=== PATIENT | female | born 1970 | race Caucasian/White ===

== ENCOUNTER 2016-11-09 08:39 | Emergency (ER) | payer BC, OTHER ==
[~2016-11-09] VITALS: Wt 65.9 kg
[~2016-11-09 08:39] MED LIST: NITR-58 PO
[2016-11-09] MEDS ORDERED: SOD CHLORIDE 0.9% 1,000 ML IV STA (09:01)
[2016-11-09 09:35] LABS: ADD UMIC YES; URINE BILIRUBIN (Dip) NEGATIVE (NEGATIVE); URINE BLOOD (Dip) 3+ (NEGATIVE); URINE COLOR LT. YELLOW (YELLOW); URINE GLUCOSE (Dip) NEGATIVE (NEGATIVE); URINE KETONES (Dip) NEGATIVE (NEGATIVE); URINE LEUKOCYTE ESTERASE (Dip) TRACE (NEGATIVE); URINE NITRITE (Dip) NEGATIVE (NEGATIVE); URINE TOTAL PROTEIN (Dip) TRACE (NEGATIVE); URINE UROBILINOGEN (Dip) 0.2 E.U./dL (0.1-1.0)
[2016-11-09 09:35] LABS: BASOPHILS % 0.5 % (0.0-2.0); EOSINOPHILS % 0.8 % (0.0-7.0); HEMATOCRIT 38.2 % (37.0-47.0); HEMOGLOBIN 12.9 g/dl (12.0-16.0); LYMPHOCYTES # 1.7 10^3/ul (0.8-2.9); LYMPHOCYTES % 35.7 % (15.0-51.0); MEAN CORPUSCULAR HEMOGLOBIN 27.3 pg (29.0-33.0); MEAN CORPUSCULAR HGB CONC 33.7 g/dl (32.0-37.0); MEAN CORPUSCULAR VOLUME 81.1 fl (82.0-101.0); MEAN PLATELET VOLUME 8.3 fl (7.4-10.4); MONOCYTE # 0.3 10^3/ul (0.3-0.9); MONOCYTES % 7.2 % (0.0-11.0); NEUTROPHIL # 2.6 10^3/ul (1.6-7.5); NEUTROPHILS % 55.8 % (39.0-77.0); PLATELET COUNT 288 10^3/UL (140-440); RED BLOOD COUNT 4.71 10^6/ul (4.20-5.40); RED CELL DISTRIBUTION WIDTH 14.1 % (11.5-14.5); UNCORRECTED WBC 4.7 10^3/ul (4.8-10.8); WHITE BLOOD COUNT 4.7 10^3/ul (4.8-10.8)
[2016-11-09 09:38] LABS: CONDITION 1; LH ANALYZER COMMENTS 1
[2016-11-09 09:40] LABS: POTASSIUM 3.7 mmol/L (3.5-5.1)
[2016-11-09 09:43] LABS: CREATININE 0.67 mg/dl (0.44-1.00)
[2016-11-09 10:02] LABS: BACTERIA,URINE OCCASIONAL; URINE RBCS >200 /HPF (0)
[2016-11-09] MEDS ORDERED: CEPHALEXIN 500 MG CAP PO ONE (10:30)
--- NOTE | 2016-11-09 10:43 | RADRPT ---
PROCEDURE: US Pelvis. CLINICAL INDICATION: Pelvic pain. LMP 10/11/2016. TECHNIQUE: Multiple transabdominal and transvaginal sonographic images of the pelvis were obtained . COMPARISON: None. FINDINGS: The uterus is anteverted in position and measures 9.4 x 5.1 x 6.0 cm (151 cc). Nonspecific heterogen eity of the uterine myometrium is observed. The endometrial complex is homogeneous in echogenicity a nd measures 5 mm in thickness. The cervix is normal. There is no free pelvic fluid. The right ovary measures 3.7 x 1.8 x 2.1 cm (7.4 cc). Small follicles are present with a dominant 2. 6 cm follicle. The left ovary is not seen. IMPRESSION: Nonspecific heterogeneity of the uterine myometrium. Otherwise, unremarkable pelvic ultrasound. RPTAT: [facility]ST .Lyn Kelly MD, MD Date Time Electronically viewed and signed by .Lyn Kelly MD, MD on 11/09/2016 10:43 .T/
[2016-11-09 11:10] VITALS: BP 125/61; PULSE 75; RESP 20; TEMP 98.2
[2016-11-09 11:26] LABS: INR 1.06; PROTIME 13.8 Sec (12.2-14.2); PT RATIO 1.1
--- NOTE | 2016-11-09 11:26 | ERD ---
ER Documentation Chief Complaint Date/Time DATE: 11/09/16 TIME: 11:22 Chief Complaint vag bleed since 10/11/16, using "5-6 pads every 2 hrs" HPI 46-year-old man brought in by for complaints of continued vaginal bleeding daily 1 month, patient uses about 6-7 pads daily. She has had irregular menses prior to this. She has had some weakness no loss of consciousness, no fevers or chills, no vaginal discharge other than bleeding, no headache or blurry vision. Patient denies dysuria. ROS All systems reviewed and are negative except as per history of present illness. Medications Home Meds Active Scripts Cephalexin* (Keflex*) 500 Mg Capsule, 500 MG PO TID for 5 Days, CAP Prov:TY FLORES MD 11/09/16 Discontinued Reported Medications [None] No Conflict Check 10/07/13 [None] No Conflict Check 11/21/09 Discontinued Scripts Nitrofurantoin Monohyd Macrocr* (Macrobid*) 100 Mg Capsr, 100 MG PO BID, #14 CAP 0 Refills Prov:DAVIS SLOAN PA-C 10/07/15 Allergies Allergies: Coded Allergies: No Known Allergies (Verified Allergy, Mild, 11/09/16) PMhx/Soc None History of Surgery: No Anesthesia Reaction: No Hx Neurological Disorder: No Hx Respiratory Disorders: No Hx Cardiac Disorders: No Hx Psychiatric Problems: No Hx Miscellaneous Medical Probl: No Hx Alcohol Use: No Hx Substance Use: No Hx Tobacco Use: No Smoking Status: Never smoker FmHx Family History: No diabetes Physical Exam Vitals Vital Signs Date Time Temp Pulse Resp B/P Pulse Ox O2 Delivery O2 Flow Rate FiO2 11/09/16 11:10 98.2 75 20 125/61 100 11/09/16 09:00 97.3 79 20 129/67 100 11/09/16 08:48 97.3 88 20 129/67 100 Physical Exam GENERAL: Well-developed, well-nourished, well-hydrated, in no apparent distress , looks nontoxic in appearance HEENT: Moist mucous membranes, pink conjunctiva, no cervical spine tenderness or step-off deformities, no goiter, no jaundice or icterus, extraocular movements intact without pain. No submandibular induration, and no pharyngeal erythema NEURO: Alert and oriented 3, cranial nerves II through XII intact bilaterally, pupils equal round reactive to light, no focal deficits or facial asymmetry, sensation intact distally Strength 5/5 in upper and lower extremities bilaterally CARDIAC: Regular rate and rhythm, no murmurs rubs or gallops LUNGS: Clear bilaterally no wheezing crackles or stridor ABDOMEN: Soft nontender, no guarding, no rigidity, no rebound, no psoas sign no obturator sign. Normoactive bowel sounds SKIN: Warm and dry to touch, no abrasions, contusions, or hematomas, no lacerations, no ecchymosis, no target lesions, and without ulcers EXTREMITIES: No clubbing cyanosis or edema, calves are bilaterally symmetrical, no Homans sign, no popliteal cord sign. Distal pulses equal and bilateral PSYCH: Normal affect without agitation or irritability Result Diagram: 11/09/1691611/09/16916 Results 24 hrs Laboratory Tests Test 11/09/16 09:17 11/09/16 09:18 11/09/16 10:58 Anion Gap 15 Basophils # 0.010^3/ul Basophils % 0.5% Blood Morphology Comment Blood Urea Nitrogen 17mg/dl Calcium Level 9.0mg/dl Carbon Dioxide Level 28mmol/L Chloride Level 105mmol/L Creatinine 0.67mg/dl Eosinophils # 0.010^3/ul Eosinophils % 0.8% Glucose Level 93mg/dl Hematocrit 38.2% Hemoglobin 12.9g/dl Lymphocytes # 1.710^3/ul Lymphocytes % 35.7% Mean Corpuscular Hemoglobin 27.3pg Mean Corpuscular Hemoglobin Concent 33.7g/dl Mean Corpuscular Volume 81.1fl Mean Platelet Volume 8.3fl Monocytes # 0.310^3/ul Monocytes % 7.2% Neutrophils # 2.610^3/ul Neutrophils % 55.8% Nucleated Red Blood Cells # 0.010^3/ul Nucleated Red Blood Cells % 0.0/100WBC Platelet Count 80007^3/UL Potassium Level 3.7mmol/L Red Blood Count 4.7110^6/ul Red Cell Distribution Width 14.1% Sodium Level 144mmol/L White Blood Count 4.710^3/ul Urine Bacteria OCCASIONAL Urine Bilirubin NEGATIVE Urine Clarity SLIGHTLY CLOUDY Urine Color LT. YELLOW Urine Epithelial Cells RARE Urine Glucose NEGATIVE% Urine Hemoglobin 3+ Urine Ketones NEGATIVE Urine Leukocyte Esterase TRACE Urine Microscopic RBC >200/HPF Urine Microscopic WBC 2-5/HPF Urine Nitrite NEGATIVE Urine Specific [place] 1.020 Urine Total Protein TRACE Urine Urobilinogen 0.2 E.U./dL Urine pH 5.0 Activated Partial Thromboplast Time 25.4Sec INR International Normalized Ratio 1.06 Prothrombin Time 13.8Sec Prothrombin Time Ratio 1.1 Current Medications Medications (Trade) Dose Ordered Sig/Javon Route PRN Reason Start Time Stop Time Status Last Admin Dose Admin Sodium Chloride (NS) 1,000 ml @ 1,000 mls/hr Q1H STAT IV 11/09/16 09:01 11/09/16 10:00 DC 11/09/16 09:24 Cephalexin (Keflex) 500 mg ONCE ONCE PO 11/09/16 10:30 11/09/16 10:31 DC 11/09/16 11:02 Procedures/MDM IV line was established patient was placed on weaver apprentice rhythm strip revealed a sinus rhythm at about 80 bpm with upright P and T waves. Patient was afebrile. test was negative, CBC and electrolytes were normal, urine was cloudy with elevated leukocytes and slight bump in urine WBCs given her presentation I will treat her for suspected early UTI. I administered cephalexin 500 mg p.o. Patient received 1 L normal saline intravenously. Pelvic nonobstetric ultrasound was performed revealing thickened endometrium. Please refer to radiologist dictation for full report. Consultation with the on-call auto haulaway driver was obtained. He agreed to evaluate the patient in the emergency department and provide overall recommendations for outpatient management. He deferred oral contraceptive prescription to the patient's own PMD and computational scientist. He has no indication for inpatient management at this time. Differential diagnoses considered, included but not limited to ovarian torsion, cervicitis, pelvic inflammatory disease, ectopic , uterine cancer, abdominal aortic aneurysm, sepsis, stroke, meningitis, encephalitis, pneumonia, appendicitis, cholecystitis, bowel obstruction, pyelonephritis, nephrolithiasis , cystitis, as well as metabolic, hematologic, and electrolyte abnormalities. As well as abscess, cellulitis, fractures, and dislocations. Patient feels much better at this time, and vital signs are normal, symptoms have improved. I did give strict instructions to return to the ED if symptoms continue or worsen, patient will otherwise follow-up with primary care physician. Patient understood instructions and agreed to plan. Departure Diagnosis: Primary Impression: Cystitis Additional Impressions: Irregular uterine bleeding Abnormal perimenopausal bleeding Condition: Good TY FLORES MD Nov 09, 2016 11:26
[2016-11-09] MEDS ORDERED: CEPH-443 PO (11:35)
[2016-11-09 12:41] LABS: PARTIAL THROMBOPLASTIN TIME 25.4 Sec (25.0-35.0)
--- NOTE | 2016-11-09 13:26 | CONS ---
DATE OF ADMISSION: 11/09/2016 DATE OF CONSULTATION: HISTORY OF PRESENT ILLNESS: This patient is a 46-year-old 2, para 2 who after delayed 2 mon ths of the period started having her period mid September which, according to her, is somewhat heavy, came in with vaginal bleeding. PAST MEDICAL HISTORY: In reviewing her past medical history, she had her first delivery vaginally a nd the second one by section. She did not have any other major medical problem or surgerie s or hospitalizations. ALLERGIES: SHE DENIES ANY ALLERGY. PHYSICAL EXAMINATION: GENERAL: She is a well-developed, well-nourished, lady. VITAL SIGNS: Her blood pressure is fine, pulse rate is okay. EARS, NOSE, AND THROAT: Appeared to be normal. NECK: Normal. No thyromegaly. No vein distention. BREASTS: Soft, free of nipples. ABDOMEN: Soft. No organomegaly. No CVA tenderness. EXTREMITIES: Normal. No edema. PELVIC: She does have slight vaginal bleeding. Vulva and vagina are normal. The uterus appears to be normal size. Adnexa not enlarged. LABORATORY TESTS: RBC of 7.71, hemoglobin 12.9, and hematocrit of 38.2, platelets 288,000, RBC 4.7. The ultrasound study which was done for her reported the uterus being anteverted and measurement w as 9.9 x 5.1 x 6 and there was a nonspecific heterogeneity, no fibroid, no enlargement of the ovary, and the right ovary was 3.7 x 1.8 x 2.1 cm and the left was also normal. With this normal ultrasou nd study and her history, obviously she has a perimenopausal dysfunctional uterine bleeding, and I d iscussed with her her condition. I encouraged her to go and see her cable driller for an endometrial biopsy. Then, if needed, they will start a control pill or progesterone therapy. I also exp lained to the general physician in the emergency room the same thing, and she will be going home to be followed up by her cable driller. In case of heavier bleeding or fainting, or any other problems, she can always come back in the emergency room. Dictated By: COLE VASQUEZ/LEV Conf#: [id number] DID#: [id number]
== END 2016-11-09 11:10 | disposition home or self-care (01) ==
LOC: E/R 08:39
DX: N30.90 Cystitis, unspecified without hematuria (principal); N92.4 Excessive bleeding in the premenopausal period; R10.2 Pelvic and perineal pain
CPT/HCPCS: 36415; 76830; 76856; 80048; 81001; 85025; 85610; 85730; 99285; J7030; Z7610; 81003

== ENCOUNTER 2017-02-02 08:56 | Emergency (ER) | payer BC ==
[~2017-02-02] VITALS: Ht 170.2 cm; Wt 80.0 kg
[~2017-02-02 08:56] MED LIST changes: +CEPH-443 PO; -NITR-58 PO
[2017-02-02 08:58] VITALS: Ht 170.2 cm; Wt 80.0 kg
[2017-02-02] MEDS ORDERED: NAPROXEN 500 MG TAB PO ONE (10:00)
--- NOTE | 2017-02-02 11:08 | RADRPT ---
PROCEDURE: XR Wrist. CLINICAL INDICATION: Right wrist pain TECHNIQUE: 4 views of the right wrist were performed. COMPARISON: No prior studies are available for comparison. FINDINGS: There is no acute fracture or dislocation. Alignment is normal. Joint spaces are preserved. Mild soft tissue swelling over the ulnar styloid is noted. IMPRESSION: 1. No radiographic evidence of acute osseous abnormality. 2. Mild soft tissue swelling over the ulnar styloid. RPTAT: [facility]U .Yoel Mars MD, MD Date Time Electronically viewed and signed by .Yoel Mars MD, MD on 02/02/2017 11:08 .K/
[2017-02-02] MEDS ORDERED: NAPR-688 PO (11:11)
--- NOTE | 2017-02-02 11:17 | ERD ---
ER Documentation Chief Complaint Date/Time DATE: 02/02/17 TIME: 11:14 Chief Complaint pt bib with c/o right wrist pain x 3 wks unk cause HPI This is a 46-year-old female presents to the ER with right wrist pain that started 3 weeks ago. Patient states that wrist pain is severe and is worse whenever she moves her wrists. She went to her primary care doctor and was given ibuprofen however did not work. Patient does admit to numbness and tingling of her fingertips. She denies any recent falls. 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 She denies any fevers or chills. ROS 12 point review of systems was done, all negative except per HPI. Medications Home Meds Active Scripts Naproxen* (Naproxen*) 500 Mg Tablet, 500 MG PO BID Y for PAIN for 7 Days, TAB Prov:MADY GARNER 02/02/17 Cephalexin* (Keflex*) 500 Mg Capsule, 500 MG PO TID for 5 Days, CAP Prov:TY FOLRES MD 11/09/16 Allergies Allergies: Coded Allergies: No Known Allergies (Verified Allergy, Mild, 11/09/16) PMhx/Soc History of Surgery: No Anesthesia Reaction: No Hx Neurological Disorder: No Hx Respiratory Disorders: No Hx Cardiac Disorders: No Hx Psychiatric Problems: No Hx Miscellaneous Medical Probl: No Hx Alcohol Use: No Hx Substance Use: No Hx Tobacco Use: No Smoking Status: Never smoker Physical Exam Vitals Vital Signs Date Time Temp Pulse Resp B/P Pulse Ox O2 Delivery O2 Flow Rate FiO2 02/02/17 08:58 97.9 71 16 102/62 99 Physical Exam GENERAL: The patient is well developed and appropriate for usual state of health , in no apparent distress. HEENT: Atraumatic. CHEST: Clear to auscultation bilaterally. There are no rales, wheezes or rhonchi. HEART: Regular rate and rhythm. No murmurs, clicks, rubs or gallops. EXTREMITIES: Right wrist: Patient is tender to palpation to the radial and ulnar styloid. No snuffbox tenderness positive Tinel sign on both sides. NEURO: Alert and oriented. SKIN: There is no apparent rash or petechia. The skin is warm and dry. Results 24 hrs Current Medications Medications (Trade) Dose Ordered Sig/Javon Route PRN Reason Start Time Stop Time Status Last Admin Dose Admin Naproxen (Naprosyn) 500 mg ONCE ONCE PO 02/02/17 10:00 02/02/17 10:02 DC 02/02/17 10:25 Procedures/MDM This is a 46-year-old female that presents to the ER with right wrist pain. Patient more than likely has carpal tunnel syndrome, there was some soft tissue swelling near the ulnar styloid on x-ray. Patient is neurovascularly intact and has good strength and sensation to her hand. She is afebrile and well- appearing. She does have normal range of motion of her wrist I doubt septic joint or any other deep space infection. I doubt osteomyelitis. There is no evidence of fractures or dislocations on the x-ray. Patient will be sent home with naproxen she was also put in a Velcro wrist splint. She is neurovascularly intact before and after splint application. Patient is to follow-up with her primary care doctor within 1-2 days or return to ER sooner if symptoms worsen. My medical decision making was shared with the and patient they understands and agrees with plan. Departure Diagnosis: Primary Impression: Pain in wrist Condition: Stable Patient Instructions: Carpal Tunnel Referrals: BRYAN MENDOZA (PCP) Additional Instructions: Call your primary care doctor TOMORROW for an appointment during the next 1-2 days.See the doctor sooner or return here if your condition worsens before your appointment time. MADY GARNER Feb 02, 2017 11:17
== END 2017-02-02 11:17 | disposition home or self-care (01) ==
LOC: FTE 08:56
DX: M25.531 Pain in right wrist (principal)
CPT/HCPCS: 73110; Z7502; Z7610

== ENCOUNTER 2017-07-08 17:13 | Emergency (ER) | payer BC, OTHER ==
[~2017-07-08] VITALS: Ht 160 cm; Wt 78.2 kg
[~2017-07-08 17:13] MED LIST changes: +NAPR-688 PO
[2017-07-08 17:15] VITALS: Ht 160 cm; Wt 78.2 kg
[2017-07-08] MEDS ORDERED: KETOROLAC 30 MG INJ IM STA (19:34)
[2017-07-08] MEDS ORDERED: NAPR-260 PO (20:00)
[2017-07-08] MEDS ORDERED: CYCL-319 PO (20:00)
[2017-07-08 20:12] VITALS: BP 125/87; PULSE 71; RESP 18; TEMP 98.4
--- NOTE | 2017-07-08 20:58 | ERD ---
ER Documentation Chief Complaint Date/Time DATE: 07/08/17 TIME: 20:53 Chief Complaint Back pain radiating down R leg HPI Patient is a 47-year-old female who to the presents emergency department for concerns of lower back pain that started 3 days ago. Patient describes the pain to be originating lung were back and radiating down her right leg. Patient states the pain radiates down to her ankle. Patient does report pain with ambulating and worse with movement changes.Patient denies any falls or trauma. Patient denies any saddle anesthesia, urinary continence, stool incontinence, night pain or LOC. Patient denies any nausea, vomiting, abdominal pain, chest pain, shortness of breath, dysuria, hematuria or LOC. Patient denies any recent travel or surgeries. Patient states she does recall cleaning her house 4 days ago however she does not recall lifting anything heavy. Please note patient is Maltese speaking. Translation services was used throughout the entire counter. ROS All systems reviewed and are negative except as per history of present illness. Medications Home Meds Active Scripts Naproxen* (Naprosyn*) 500 Mg Tablet, 500 MG PO BID Y for PAIN AND/OR INFLAMMATION, #30 TAB Prov:VIVEK KAN PA-C 07/08/17 Cyclobenzaprine Hcl* (Cyclobenzaprine Hcl*) 10 Mg Tablet, 10 MG PO TID, #15 TAB Prov:VIVEK KAN PA-C 07/08/17 Naproxen* (Naproxen*) 500 Mg Tablet, 500 MG PO BID Y for PAIN for 7 Days, TAB Prov:MADY GARNER 02/02/17 Cephalexin* (Keflex*) 500 Mg Capsule, 500 MG PO TID for 5 Days, CAP Prov:TY FLORES MD 11/09/16 Allergies Allergies: Coded Allergies: No Known Allergies (Verified Allergy, Mild, 11/09/16) PMhx/Soc Medical and Surgical Hx: pt denies Medical Hx, pt denies Surgical Hx History of Surgery: No Anesthesia Reaction: No Hx Neurological Disorder: No Hx Respiratory Disorders: No Hx Cardiac Disorders: No Hx Psychiatric Problems: No Hx Miscellaneous Medical Probl: No Hx Alcohol Use: No Hx Substance Use: No Hx Tobacco Use: No Smoking Status: Never smoker FmHx Family History: No diabetes Physical Exam Vitals Vital Signs Date Time Temp Pulse Resp B/P Pulse Ox O2 Delivery O2 Flow Rate FiO2 07/08/17 20:12 98.4 71 18 125/87 98 Room Air 07/08/17 17:15 98.1 69 18 118/69 99 Physical Exam GENERAL: Well-developed, well-nourished female. Appears in no acute distress. Speaking in full sentences. HEAD: Normocephalic, atraumatic. EYES: Pupils are equally reactive bilaterally. EOMs grossly intact. No conjunctival erythema. ENT: Moist mucous membranes. No uvula deviation. No kissing tonsils. NECK: Supple. No meningismus. Normal range of motion of the neck. No cervical midline tenderness. LUNG: Clear to auscultation bilaterally. No rhonchi, wheezing, rales or coarse breath sounds. HEART: Regular rate and rhythm. No murmurs, rubs or gallops. BACK: No midline tenderness. Tender to palpation in the right lumbar paraspinals muscles. +Right-sided straight leg raise noted. EXTREMITIES: Equal pulses bilaterally. No peripheral clubbing, cyanosis or edema. No unilateral leg swelling. NEUROLOGIC: Alert and oriented. Moving all four extremities without any difficulty. Normal speech. Steady gait. SKIN: Normal color. Warm and dry. No rashes or lesions. Results 24 hrs Current Medications Medications (Trade) Dose Ordered Sig/Javon Route PRN Reason Start Time Stop Time Status Last Admin Dose Admin Ketorolac Tromethamine (Toradol) 30 mg ONCE STAT IM 07/08/17 19:34 07/08/17 19:35 DC 07/08/17 19:46 Procedures/MDM ED COURSE: The patient was stable throughout ED course. I kept the patient and/or family informed of laboratory and diagnostic imaging results throughout the ED course. MEDICATIONS GIVEN: Toradol IM Patient tolerated medication well with no adverse reactions. Patient reported improvement in pain. MEDICAL DECISION MAKING: This is a 47-year-old female who presents with lower back pain radiating down her right leg 3 days. Vital signs were reviewed. Patient was afebrile. Patient denied any saddle anesthesia, urinary incontinence, bowel incontinence, night pain or recent trauma. Patient denies any falls or trauma. Patient does report cleaning unsure if these recent activities caused her to have pain. Given the patient denies any falls or trauma imaging studies are not obtained. Patient was given Toradol IM. test was negative. Given these findings, the patient's presentation is most consistent with lumbar strain with sciatica. I have a much lower clinical concern for cauda equine syndrome, spinal fractures, epidural abscess, spinal metastases, osteomyelitis, aortic dissection, ruptured or leaking AA, DJD, muscle spasm, pyelonephritis or nephrolithiasis. PRESCRIPTIONS: Naproxen, Flexeril DISCHARGE: At this time, patient is stable for discharge and outpatient management. Warm compresses to the affected area advised to the patient. RICE therapy and ROM exercises were advised to avoid stiffness. I have instructed the patient to follow-up with his/her primary care physician in 1-2 days. I have discussed with the patient the possibility of needing to see an orthopedic podiatrist for further workup and imaging if the pain persists. I have instructed the patient to promptly return to the ER for any new or worsening symptoms including increased pain, swelling, warmth, urinary incontinence, stool incontinence, weakness or numbness. The patient and/or family expressed understanding of and agreement with this plan. All questions were answered. Home care instructions were provided. Disclaimer: Inadvertent spelling and grammatical errors are likely due to EHR/ dictation software use and do not reflect on the overall quality of patient care. Also, please note that the electronic time recorded on this note does not necessarily reflect the actual time of the patient encounter. Departure Diagnosis: Primary Impression: Back pain Condition: Stable Patient Instructions: Back Pain W/ Sciatica Referrals: BRYAN MENDOZA (PCP) Additional Instructions: Call your primary care doctor TOMORROW for an appointment during the next 1-2 days.See the doctor sooner or return here if your condition worsens before your appointment time. VIVEK KAN PA-C Jul 08, 2017 20:58
== END 2017-07-08 20:14 | disposition home or self-care (01) ==
LOC: FTE 17:13
DX: M54.5 Low back pain (principal)
CPT/HCPCS: 96372; J1885; Z7502